=== PATIENT | male | born 1995 | race Caucasian/White ===

== ENCOUNTER 2021-03-18 07:47 | Day surgery (SDC) | payer BC ==
[2021-03-15 16:30] VITALS: BMI 18.6
[2021-03-18] MEDS ORDERED: BUPIVACAINE HCL/PF 0.25% (2.5MG/ML) 10 ML VIAL ONE (09:47)
[2021-03-18] MEDS ORDERED: MIDAZOLAM HCL 2 MG/2 ML SINGLE DOSE VIAL ONE (09:57)
[2021-03-18] MEDS ORDERED: PROPOFOL 20 ML ONE (10:58)
[2021-03-18] MEDS ORDERED: GUM MASTIC/STORAX/MSAL/ALCOHOL 1 DRP DROPSBTL MC ONE (11:54)
[2021-03-18] MEDS ORDERED: MEPERIDINE HCL 50 MG/ML VIAL ONE (12:19)
[2021-03-18 12:41] VITALS: TEMP 96.2
[2021-03-18] MEDS ORDERED: ONDANSETRON 4 MG/2 ML VIAL ONE (12:42)
[2021-03-18] MEDS ORDERED: LACTATED RINGERS SOLUTION 1,000 ML IV SCH (12:45)
[2021-03-18] MEDS ORDERED: oxyCODONE HCL 5 MG TABLET PO PRN (12:45)
[2021-03-18] MEDS ORDERED: ONDANSETRON 4 MG/2 ML VIAL IVPUSH PRN (12:45)
[2021-03-18 14:27] VITALS: BP 148/92; PULSE 92
== END 2021-03-18 14:15 | disposition home or self-care (01) ==
LOC: FASU 07:47
PROVIDERS: ATTEND Orthopaedic Surgery Sports Medicine
PROC: 0SBC4ZZ Excision of Right Knee Joint, Percutaneous Endoscopic Approach (ICD-10-PCS; 2021-03-18)
PROC: 0SBC4ZZ Excision of Right Knee Joint, Percutaneous Endoscopic Approach (ICD-10-PCS; principal; 2021-03-18 10:39)
DX: S83.241A Other tear of medial meniscus, current injury, right knee, initial encounter (principal); X58.XXXA Exposure to other specified factors, initial encounter; Y92.9 Unspecified place or not applicable; Y93.9 Activity, unspecified
CPT/HCPCS: 29879; 29881; C1713; 94760; J2175